=== PATIENT | male | born 1995 | race African-American/Black ===

== ENCOUNTER 2017-10-25 20:37 | Emergency (ER) | payer OTHER, MEDICAID ==
[~2017-10-25] VITALS: Ht 175.3 cm; Wt 63.5 kg
[2017-10-25] MEDS ORDERED: NKM (20:56)
[2017-10-25 21:00] VITALS: BP 121/70
--- NOTE | 2017-10-25 21:24 | Emergency Room Report ---
History of Present Illness General Chief Complaint: Male Urogenital Problems Source: Patient Present Illness HPI Patient presents with penile discharge. Going on for a couple days. There's been spots in his underwear. He's had unprotected sex. He denies any fevers, chills, joint pain, lymphadenopathy. There is no hematuria. No rashes. Pain rated 10/10. States testicles tight to body but not tender. Treated for STD once before. Allergies: Coded Allergies: No Known Allergies (Unverified , 10/25/17) Patient History Past Medical History: see triage record Social History: Reports: smoking Social History Narrative with Mom Reviewed Nursing Documentation: PMH: Agreed; PSxH: Agreed Nursing Documentation-PMH Past Medical History: No Stated History Review of Systems All Other Systems: negative except mentioned in HPI Physical Exam Vital Signs Date Time Temp Pulse Resp B/P (MAP) Pulse Ox O2 Delivery O2 Flow Rate FiO2 10/25/17 20:52 97.4 62 18 121/70 98 Room Air 97.3 Sp02 EP Interpretation: reviewed, normal General Appearance: well appearing, no apparent distress Head: normocephalic, atraumatic Eyes: bilateral eye normal inspection, bilateral eye PERRL ENT: hearing grossly normal, normal voice, moist mucus membranes Neck: full range of motion, supple Respiratory: no respiratory distress, speaking full sentences Genitourinary: normal inspection, penis normal, scrotum normal - not tender Musculoskeletal: digits/nails normal, gait/station normal, normal range of motion Neurologic: alert, normal gait, grossly normal Psychiatric: mood/affect normal Skin: no rash Lymphatic: no adenopathy Medical Decision Making Diagnostic Impression: Primary Impression: Urethritis ER Course Patient with penile discharge after unprotected sex. DDx: GC, chlamydia amongst others. UA sent. Treated with rocephin and doxy. Also given analgesia. Improved. Discussed need for follow up tests and condoms. Patient stable for outpatient observation and treatment. Laboratory Tests Test 10/25/17 21:40 Urine Color Yellow Urine Appearance Slightly cloudy Urine pH 7 (4.5-8.0) Urine Specific [place] 1.010 (1.005-1.035) Urine Protein Negative (NEGATIVE) Urine Glucose (UA) Negative (NEGATIVE) Urine Ketones 1+ (NEGATIVE) H Urine Occult Blood Negative (NEGATIVE) Urine Nitrite Negative (NEGATIVE) Urine Bilirubin Negative (NEGATIVE) Urine Urobilinogen Normal MG/DL (0.0-1.0) Urine Leukocyte Esterase 2+ (NEGATIVE) H Urine RBC 0-2 /HPF (0 - 0) H Urine WBC 2-4 /HPF (0 - 0) Urine Squamous Epithelial Cells None /LPF (NONE/OCC) Urine Amorphous Sediment Few /LPF (NONE) H Urine Bacteria Few /HPF (NONE) Chlamydia trachomatis RNA Pending Neisseria gonorrhoeae RNA Pending Last Vital Signs Date Time Temp Pulse Resp B/P (MAP) Pulse Ox O2 Delivery O2 Flow Rate FiO2 10/25/17 21:45 97.4 62 18 121/70 98 Room Air 207.3 Status: improved Disposition: HOME, SELF-CARE Condition: Improved Scripts Ibuprofen* (MOTRIN*) 600 Mg Tablet 600 MG ORAL Q6H PRN for For Pain, #16 TAB Prov: Lenny Mcgarry M.D. 10/25/17 Tramadol Hcl* (ULTRAM*) 50 Mg Tablet 50 MG ORAL Q6H PRN for For Pain, #10 TAB 0 Refills Prov: Lenny Mcgarry M.D. 10/25/17 Doxycycline Monohydrate* (DOXYCYCLINE MONOHYDRATE*) 100 Mg Capsule 100 MG ORAL Q12H, #14 CAP 0 Refills Prov: Lenny Mcgarry M.D. 10/25/17 Lenny Mcgarry M.D. Oct 25, 2017 21:24
[2017-10-25] MEDS ORDERED: IBUPROFEN600 MG ORAL (21:25)
[2017-10-25] MEDS ORDERED: TRAMADOL HCL50 MG ORAL (21:25)
[2017-10-25] MEDS ORDERED: DOXYCYCLINE MO100 MG ORAL (21:25)
[2017-10-25] MEDS ORDERED: Lidocaine 1% MPF 10mg/ml 5ml INJ ONE (21:30)
[2017-10-25] MEDS ORDERED: traMADol 50mg tab ORAL ONE (21:30)
[2017-10-25 21:45] VITALS: BP 121/70
[2017-10-25 22:17] LABS: APPEARANCE,URINE SLIGHTLY CLOUDY; BILIRUBIN, URINE NEGATIVE (NEGATIVE); GLUCOSE, URINE (UA) NEGATIVE (NEGATIVE); KETONES,URINE 1+ (NEGATIVE); LEUKOCYTE ESTERASE ,URINE 2+ (NEGATIVE); NITRITE,URINE NEGATIVE (NEGATIVE); PH,URINE 7 (4.5-8.0); PROTEIN,URINE NEGATIVE (NEGATIVE); UROBILINOGEN,URINE NORMAL MG/DL (0.0-1.0)
[2017-10-25 22:21] LABS: COLOR,URINE YELLOW
== END 2017-10-25 21:45 | disposition home or self-care (01) ==
LOC: EMR 21:45
DX: N34.2 Other urethritis (principal); F17.200 Nicotine dependence, unspecified, uncomplicated
CPT/HCPCS: 81003; 87491; 87590; 96372; 99283; J0696

== ENCOUNTER 2017-11-19 10:55 | Emergency (ER) | payer OTHER ==
[~2017-11-19] VITALS: Ht 177.8 cm; Wt 68.0 kg
[~2017-11-19 10:55] MED LIST: DOXYCYCLINE MO100 MG ORAL; IBUPROFEN600 MG ORAL; NKM; TRAMADOL HCL50 MG ORAL
[2017-11-19 11:15] VITALS: BP 120/69
[2017-11-19 11:33] LABS: APPEARANCE,URINE CLEAR; BILIRUBIN, URINE NEGATIVE (NEGATIVE); GLUCOSE, URINE (UA) NEGATIVE (NEGATIVE); KETONES,URINE 4+ (NEGATIVE); LEUKOCYTE ESTERASE ,URINE 1+ (NEGATIVE); NITRITE,URINE NEGATIVE (NEGATIVE); PH,URINE 6.5 (4.5-8.0); PROTEIN,URINE 1+ (NEGATIVE); UROBILINOGEN,URINE 1 MG/DL (0.0-1.0)
[2017-11-19 11:50] LABS: COLOR,URINE YELLOW
[2017-11-19] MEDS ORDERED: Lidocaine 1% MPF 10mg/ml 5ml INJ ONE (12:15)
[2017-11-19] MEDS ORDERED: Azithromycin 250mg tab ORAL ONE (12:15)
--- NOTE | 2017-11-19 12:26 | Emergency Room Report ---
History of Present Illness General Chief Complaint: Male Urogenital Problems Source: Patient Present Illness HPI This patient states that about a month ago he was treated for gonorrhea. He states he didn't fully take the medications that he was prescribed. He is concerned because he noticed over the past 24 hours that he has discharge again. He denies that he was having contact with any sexual partners. He denies fever or chills. He denies nausea or vomiting. He denies abdominal pain. He states he has a thick discharge similar to the previous infection. Allergies: Coded Allergies: No Known Allergies (Unverified , 10/25/17) Patient History Past Medical History: none Past Surgical History: none Social History: Denies: smoking, alcohol use, drug use Reviewed Nursing Documentation: PMH: Agreed; PSxH: Agreed Nursing Documentation-PMH Past Medical History: No History, Except For Review of Systems All Other Systems: negative except mentioned in HPI Physical Exam Vital Signs Date Time Temp Pulse Resp B/P (MAP) Pulse Ox O2 Delivery O2 Flow Rate FiO2 11/19/17 11:09 98.2 59 14 120/69 97 Room Air 98.2 Sp02 EP Interpretation: reviewed, normal General Appearance: no apparent distress, alert, GCS 15, non-toxic Head: normocephalic, atraumatic Eyes: bilateral eye normal inspection, bilateral eye PERRL ENT: hearing grossly normal, normal pharynx, no angioedema, normal voice Neck: full range of motion, supple/symm/no masses Respiratory: chest non-tender, lungs clear, normal breath sounds, speaking full sentences Cardiovascular #1: regular rate, rhythm, no edema Cardiovascular #2: 2+ carotid (R), 2+ carotid (L), 2+ radial (R), 2+ radial (L) , 2+ dorsalis pedis (R), 2+ dorsalis pedis (L) Gastrointestinal: normal bowel sounds, non tender, soft, non-distended, no guarding, no rebound Rectal: deferred Musculoskeletal: back normal, gait/station normal, normal range of motion, non- tender Neurologic: alert, oriented x3, responsive, motor strength/tone normal, sensory intact, speech normal Psychiatric: judgement/insight normal, memory normal, mood/affect normal, no suicidal/homicidal ideation Skin: normal color, no rash, warm/dry, well hydrated Medical Decision Making Diagnostic Impression: Primary Impression: STI (sexually transmitted infection) ER Course This patient has a history of gonorrhea and has symptoms consistent with recurrence. The patient was retreated with Rocephin IM and Zithromax by mouth for full gonorrhea and chlamydia treatment. The patient was also educated that he does not have sexual contact with the same partners or other partners with a sexually transmitted infection or he will get reinfected. He is also educated that he was not tested for HIV or syphilis and that he would have to obtain this testing at an outpatient clinic. He indicated understanding. He is given return precautions and follow-up instructions. Laboratory Tests Test 11/19/17 11:24 Urine Color Yellow Urine Appearance Clear Urine pH 6.5 (4.5-8.0) Urine Specific [place] 1.015 (1.005-1.035) Urine Protein 1+ (NEGATIVE) H Urine Glucose (UA) Negative (NEGATIVE) Urine Ketones 4+ (NEGATIVE) H Urine Blood Negative (NEGATIVE) Urine Nitrite Negative (NEGATIVE) Urine Bilirubin Negative (NEGATIVE) Urine Urobilinogen 1 MG/DL (0.0-1.0) H Urine Leukocyte Esterase 1+ (NEGATIVE) H Urine RBC 0 /HPF (0 - 0) Urine WBC 0-2 /HPF (0 - 0) Urine Squamous Epithelial Cells None /LPF (NONE/OCC) Urine Bacteria None /HPF (NONE) Urine Mucus Few /LPF (NONE/OCC) H Chlamydia trachomatis RNA Pending Neisseria gonorrhoeae RNA Pending Last Vital Signs Date Time Temp Pulse Resp B/P (MAP) Pulse Ox O2 Delivery O2 Flow Rate FiO2 11/19/17 11:15 98.2 59 14 120/69 97 Room Air 98.2 Disposition: HOME, SELF-CARE Condition: Improved Referrals: [facility] (PCP) Kandy Oakes DO Nov 19, 2017 12:26
[2017-11-19 12:55] VITALS: BP 120/69
== END 2017-11-19 13:00 | disposition home or self-care (01) ==
LOC: EMR 11:29
DX: A63.8 Other specified predominantly sexually transmitted diseases (principal); R36.9 Urethral discharge, unspecified; Z87.438 Personal history of other diseases of male genital organs
CPT/HCPCS: 81003; 87491; 87590; 96372; 99283; J0696

== ENCOUNTER 2017-11-29 08:36 | Emergency (ER) | payer OTHER ==
[~2017-11-29] VITALS: Ht 177.8 cm; Wt 68.0 kg
[2017-11-29 08:49] VITALS: BP 149/82
[2017-11-29] MEDS ORDERED: Ketorolac 60mg Inj IM ONE (09:00)
[2017-11-29 09:59] LABS: APPEARANCE,URINE SLIGHTLY CLOUDY; BILIRUBIN, URINE NEGATIVE (NEGATIVE); GLUCOSE, URINE (UA) NEGATIVE (NEGATIVE); KETONES,URINE NEGATIVE (NEGATIVE); LEUKOCYTE ESTERASE ,URINE NEGATIVE (NEGATIVE); NITRITE,URINE NEGATIVE (NEGATIVE); PH,URINE 6.5 (4.5-8.0); PROTEIN,URINE 1+ (NEGATIVE); UROBILINOGEN,URINE NORMAL MG/DL (0.0-1.0)
[2017-11-29 10:00] LABS: COLOR,URINE YELLOW
--- NOTE | 2017-11-29 10:17 | Emergency Room Report ---
History of Present Illness General Chief Complaint: Male Urogenital Problems Source: Patient Present Illness [facility] This patient has been seen 3 times in the past month. He initially presented with urethritis and was found to have chlamydia. He was treated at that time. He was again treated for chlamydia and gonorrhea as a precaution when he returned stating similar symptoms. He returns today stating that both of his testicles are sore and tender and swollen. He states that this has been ongoing the entire time. He denies constipation or diarrhea. He denies abdominal pain. He has not followed up with her primary care physician or other specialist. He states he has not had sexual intercourse since the initial infection 1 month ago. Allergies: Coded Allergies: No Known Allergies (Unverified , 10/25/17) Patient History Past Medical History: none, see triage record Social History: Denies: smoking, alcohol use, drug use Reviewed Nursing Documentation: PMH: Agreed; PSxH: Agreed Nursing Documentation-PMH Past Medical History: No History, Except For Review of Systems All Other Systems: negative except mentioned in HPI Physical Exam Vital Signs Date Time Temp Pulse Resp B/P (MAP) Pulse Ox O2 Delivery O2 Flow Rate FiO2 11/29/17 08:39 97.9 99 18 149/82 99 Room Air 97.9 Sp02 EP Interpretation: reviewed, normal General Appearance: no apparent distress, alert, GCS 15, non-toxic Head: normocephalic, atraumatic Eyes: bilateral eye normal inspection, bilateral eye PERRL ENT: hearing grossly normal, normal pharynx, no angioedema, normal voice Neck: full range of motion, supple/symm/no masses Respiratory: no respiratory distress, no retraction, no accessory muscle use, speaking full sentences Gastrointestinal: normal bowel sounds, non tender, soft, non-distended, no guarding, no rebound Rectal: deferred Genitourinary: normal inspection, penis normal, other - TTP bilateral scrotum. swelling bilaterally. Musculoskeletal: back normal, gait/station normal, normal range of motion, non- tender Neurologic: alert, oriented x3, responsive, motor strength/tone normal, sensory intact, speech normal Psychiatric: judgement/insight normal, memory normal, mood/affect normal, no suicidal/homicidal ideation Skin: normal color, no rash, warm/dry, well hydrated Medical Decision Making Diagnostic Impression: Primary Impression: Varicocele present on ultrasound of scrotum ER Course This patient presents with bilateral testicular pain. He has had ongoing issues with testicular pain and penile pain. Urinalysis is negative. I reviewed the previous GC chlamydia and these are also negative. I do not feel this patient needs any further antibiotics. The patient was instructed on scrotal support and follow-up with a urologist. His mother is also bedside to I also expressed to the importance of following up with a specialist at this point. Patient underwent ultrasound of the scrotum and only found to have a small varicocele and some prominence of the epididymitis. Patient has been on several courses of antibiotics. He needs further follow-up with a urologist. Laboratory Tests Test 11/29/17 09:00 Urine Color Yellow Urine Appearance Slightly cloudy Urine pH 6.5 (4.5-8.0) Urine Specific [place] 1.020 (1.005-1.035) Urine Protein 1+ (NEGATIVE) H Urine Glucose (UA) Negative (NEGATIVE) Urine Ketones Negative (NEGATIVE) Urine Blood Negative (NEGATIVE) Urine Nitrite Negative (NEGATIVE) Urine Bilirubin Negative (NEGATIVE) Urine Urobilinogen Normal MG/DL (0.0-1.0) Urine Leukocyte Esterase Negative (NEGATIVE) Urine RBC 0-2 /HPF (0 - 0) H Urine WBC 0-2 /HPF (0 - 0) Urine Squamous Epithelial Cells Occasional /LPF Urine Amorphous Sediment Many /LPF (NONE) H Urine Bacteria Occasional /HPF (NONE) CT/MRI/US Diagnostic Results CT/MRI/US Diagnostic Results : Imaging Test Ordered: US scrotum/testicles Impression L. varicocele. prominent epididymis. See official report in EMR. Last Vital Signs Date Time Temp Pulse Resp B/P (MAP) Pulse Ox O2 Delivery O2 Flow Rate FiO2 11/29/17 09:09 97.9 11/29/17 08:49 18 149/82 99 Room Air 11/29/17 08:39 99 Status: improved Disposition: HOME, SELF-CARE Condition: Improved Referrals: NON PHYSICIAN (PCP) Patient Instructions: Scrotal Swelling, Varicocele, Epididymitis Kandy Oakes DO Nov 29, 2017 10:17
[2017-11-29 10:58] VITALS: BP 145/80
--- NOTE | 2017-11-29 11:31 | Diagnostic Imaging Report ---
Indication: Pain Technique: Multiplanar grayscale imaging of the testicles. Duplex Doppler evaluation was also performed. Comparison: None Findings: The right testicle measures 4.4 x 2 x 2.8 cm. The left testicle measures 4.4 x 2.1 x 3.3 cm. Bilateral testicular echogenicity is homogeneous. No testicular masses identified. Symmetric color and Doppler flow noted in the testicles bilaterally. No evidence of testicular hyperemia to suggest orchitis. Right epididymis is unremarkable in appearance. Left epididymis is mildly prominent compared to the right. There is slight increased vascularity in the left epididymis compared to the right. There is dilatation of vascular structures in the left spermatic cord over 2 mm. These findings suggest varicocele. IMPRESSION: * No evidence of testicular torsion. * Slight asymmetric prominence and vascularity of the left epididymis. Correlate for mild epididymitis on the left. * Small left varicocele Findings correspond with the preliminary report issued to the emergency department by the scanning ultrasound technologist sonographer.
== END 2017-11-29 10:58 | disposition home or self-care (01) ==
LOC: EMR 09:00
DX: I86.1 Scrotal varices (principal)
CPT/HCPCS: 76870; 81003; 96372; 99284